=== PATIENT | female | born 1975 | race Caucasian/White ===

== ENCOUNTER 2016-11-28 09:43 | Inpatient (IN) | payer BC, OTHER ==
[~2016-11-28] VITALS: Ht 160 cm; Wt 102.5 kg
[~2016-11-28 09:43] MED LIST: MTR600X PO; PRENTAB26 PO
[2016-11-28] MEDS ORDERED: LACTATED RINGER'S 1000ML 1,000 ML IV SCH ×2 (10:28→17:16)
[2016-11-28] MEDS ORDERED: LACTATED RINGER'S 1000ML 1,000 ML IV PRN (10:28)
[2016-11-28] MEDS ORDERED: LACTATED RINGER'S 1000ML 500 ML IV PRN ×2 (10:29→14:27)
[2016-11-28] MEDS ORDERED: OXYTOCIN 30 UNITS/500ML NSS IV PRN ×2 (10:30→17:30)
[2016-11-28 10:55] LABS: HEMATOCRIT 34.6 % (37-47); MEAN CELL VOLUME 85.4 fL (80-100); MEAN CORPUSCULAR HEMOGLOBIN 29.4 pg (25-34); MEAN CORPUSCULAR HGB CONC 34.4 g/dl (32-36); MEAN PLATELET VOLUME 9.2 fL (7.4-10.4); PLATELET COUNT 231 K/uL (130-400); RED BLOOD COUNT 4.05 M/uL (4.2-5.4); WHITE BLOOD COUNT 9.66 K/uL (4.8-10.8)
--- NOTE | 2016-11-28 11:08 | HISTORY & PHYSICAL EXAMINATION ---
DATE OF ADMISSION: 11/28/2016 CHIEF COMPLAINT: Leakage of fluid. HISTORY OF PRESENT ILLNESS: The patient is a 41-year-old G3, P2-0-0-2 at 39 weeks and 3 days of gestation who has been feeling leakage of fluid since 11:00 p.m. last night. She had a gush of leakage x2, it was clear and since then she has been leaking a very small amount of discharge. She denies vaginal bleeding and she denies contractions. She reports good movements. She denies fever, chills, chest pain, shortness of breath, headache, change in her vision, nausea, or vomiting. Her has been complicated by: 1. Advanced maternal age. The patient had panorama testing. 2. Gestational diabetes. It has been diet controlled. 3. History of gastroesophageal reflux disease. 4. History of migraines. 5. Obesity class 1. PAST MEDICAL HISTORY: As above. She also has a history of ADHD. No medications for the last 8 years. History of asthma, allergic, no medications for the last 2 months. Gastroesophageal reflux, history of Khadijah fundoplication, migraines, history of depression and anxiety, no medications since 2013, allergic rhinitis. PAST SURGICAL HISTORY: Tovey teeth extraction, tonsillectomy, carpal tunnel surgery, Nino fundoplication for reflux disease, knee arthroscopy. MEDICATIONS: vitamins and DHA, Flonase nasal spray and Albuterol inhaler as needed, Boon 3 340 mg once a day. LABS: Her GC chlamydia cultures were negative. Blood type is A positive, antibody screen negative. H\T\H was 13/38, platelets 287. Rubella titer positive, RPR nonreactive, hepatitis B surface antigen negative. Urine culture was negative. One-hour Glucola on May 17 was elevated at 65 and 3-hour OGGT had high number. Maternal an AFP screening was negative. Repeat Glucola at 28 weeks was elevated and 3-hour OGGT was elevated. GBS culture was negative on 11/01/2016. PHYSICAL EXAMINATION: GENERAL: The patient is alert, oriented x3, not in acute distress. She is comfortable talking and smiling. VITAL SIGNS: Blood pressure is 115/71, temperature 97.9, pulse 85, respiration 22. CARDIOVASCULAR SYSTEM: S1, S2, RRR. LUNGS: Clear to auscultation bilaterally. ABDOMEN: Soft, gravid. Zachery 8 to 8-1/2 pounds. EXTREMITIES: Nontender, edema. PELVIC EXAMINATION: Speculum exam no pooling. Nitrazine positive and ferning positive. Bedside ultrasound vertex presentation. Her cervix is 1 cm dilated, thick, soft, -4 position. heart rate 150s, category 1. [place]ata mild irregular contractions. ASSESSMENT AND PLAN: The patient is a 41-year-old G3, P2-0-0-2 at 39 weeks and 3 days of gestation presenting with premature rupture of membranes at term, not in labor. Vital signs stable, afebrile. GBS negative. heart rate reassuring. Plan is admit her, start IV fluids, start IV Pitocin augmentation of labor and discussed the benefits of using Pitocin with decreased latency period and decreased risk for intra-amniotic infection. She understands and she agrees with the plan. GARCÍA
[2016-11-28 12:09] VITALS: Ht 160 cm; Wt 102.5 kg
[2016-11-28] MEDS ORDERED: OMEG10007 PO (12:10)
[2016-11-28] MEDS ORDERED: ACETAMINOPHEN 325 MG TAB PO SCH (12:30)
[2016-11-28] MEDS ORDERED: FENTANYL 2MCG/ML ROPIV 1.25MG/ML 100ML BAG EPI ONE (13:07)
[2016-11-28] MEDS ORDERED: BUPIVACAINE 0.25% 30 ML VIAL ONE (13:07)
[2016-11-28] MEDS ORDERED: EpHEDrine SULFATE INJ 50 MG/ML AMP ONE (13:07)
[2016-11-28] MEDS ORDERED: FENTANYL CITRATE INJ 50 MCG/1 ML 2 ML VIAL ONE (13:07)
[2016-11-28] MEDS ORDERED: NALOXONE HCL INJ 1 MG in SODIUM CHLORIDE 0.9% 1000ML 1,000 ML IV PRN (14:27)
[2016-11-28] MEDS ORDERED: EpHEDrine SULFATE INJ 50 MG/ML AMP IV PRN (14:30)
[2016-11-28] MEDS ORDERED: NALBUPHINE HCL INJ 10 MG/ML AMP IV PRN (14:30)
[2016-11-28] MEDS ORDERED: FENTANYL 2MCG/ML ROPIV 1.25MG/ML 100ML BAG EPI PRN (14:30)
[2016-11-28] MEDS ORDERED: ONDANSETRON INJ 2 MG/ML 2 ML VIAL IV PRN (14:30)
[2016-11-28] MEDS ORDERED: DiphenhydrAMINE HCL 50 MG/ML VIAL IV PRN (14:30)
[2016-11-28] MEDS ORDERED: NALOXONE HCL INJ 0.4 MG/1 ML VIAL/CARP IV PRN (14:30)
[2016-11-28] MEDS ORDERED: SUPERCREAM 0.870 % 15GM JAR EXT PRN (17:30)
[2016-11-28] MEDS ORDERED: LANOLIN OINT EXT PRN ×2 (17:30)
[2016-11-28] MEDS ORDERED: DIPHTHERIA/TETANUS/PERTUSSIS 0.5 ML SYR/VIAL IM. ONE (17:30)
[2016-11-28] MEDS ORDERED: MEASLES, MUMPS & RUBELLA VIRUS VIAL SQ. ONE (17:30)
[2016-11-28] MEDS ORDERED: HYDROCORTISONE ACETATE 25 MG SUPP PR PRN (17:30)
[2016-11-28] MEDS ORDERED: ACETAMINOPHEN 325 MG TAB PO PRN (17:30)
--- NOTE | 2016-11-28 17:46 | DELIVERY SUMMARY ---
DATE OF OPERATION: 11/28/2016 TIME OF DELIVERY OF BABY: 1703 p.m. TIME OF DELIVERY OF PLACENTA: 1710 p.m. DETAILS OF DELIVERY: The patient was found to be fully dilated and desired to push. She pushed for only 3 times and delivered the head in direct occiput posterior position, facing upwards and the shoulders at the same time. There was a cord around the right arm of the baby, which was reduced during delivery. Baby was handed off to the mother where mouth and nose were suctioned. Cord was clamped x2 and cut. It was a 3-vessel cord. Then the vagina and perineum were checked for lacerations. There was a small about 1 cm perineal laceration at the posterior fourchette. It was only a second degree, it was repaired with 2-0 Vicryl in a running fashion and good hemostasis was achieved. Then placenta was found to be in the vagina and delivered spontaneously intact and complete. The uterus was explored and found to be empty. Lower segment was cleared of all clots and debris. Fundus was firm. EBL was 200. Mother and baby tolerated the procedure well. Sponge, lap, needle, instrument count was correct x2. Baby was a viable female infant. Apgars 8/9, weight is pending. No complications happened and I was present during whole procedure. I attest to the content of the Intraoperative Record and any orders documented therein. Any exceptions are noted below. MTDD
--- NOTE | 2016-11-28 18:59 | Anesthesia Procedure Note ---
Anesthesia Epidural Removal Nt Date & Time Nov 28, 2016 at 18:59 Vital Signs Pain Intensity: 7.0 Notes Mental Status: alert / awake / arousable, participated in evaluation Nausea / Vomiting: adequately controlled Pain: adequately controlled Airway Patency, RR, SpO2: stable & adequate BP & HR: stable & adequate Hydration State: stable & adequate Neuraxial Anesthesia: was administered Anesthetic Complications: no major complications apparent, pt satisfied with anesthetic care Epidural: removed without complications, with tip intact
[2016-11-28] MEDS: BENZOCAINE 20% AER SPR 82.5 GM CAN EXT PRN (20:19)
[2016-11-28 20:30] VITALS: BP 123/73; PULSE 116; TEMP 36.6; O2SAT 98
[2016-11-28] MEDS: IBUPROFEN 600 MG TAB PO PRN (21:15)
[2016-11-28] MEDS ORDERED: MAGNESIUM HYDROXIDE SUSP 30 ML UDC PO PRN (22:30)
[2016-11-28] MEDS: ACETAMINOPHEN 325 MG TAB PO PRN (23:31)
[2016-11-29 00:25] VITALS: BP 107/65; PULSE 96; TEMP 36.4; O2SAT 97
[2016-11-29] MEDS: IBUPROFEN 600 MG TAB PO PRN ×4 (03:17→19:52)
[2016-11-29 03:25] VITALS: BP 110/79; PULSE 93; TEMP 36.3; O2SAT 96
[2016-11-29] MEDS: ACETAMINOPHEN 325 MG TAB PO PRN ×4 (06:13→21:59)
[2016-11-29 07:52] LABS: HEMATOCRIT 30.3 % (37-47)
[2016-11-29 07:55] VITALS: BP 111/77; PULSE 85; TEMP 36.4
[2016-11-29] MEDS: PRENATAL VITAMIN TAB PO SCH (08:02)
[2016-11-29] MEDS: FERROUS SULFATE 325 MG TAB PO SCH (08:02)
[2016-11-29] MEDS: DOCUSATE SODIUM 100 MG CAP PO PRN ×2 (08:02→19:55)
--- NOTE | 2016-11-29 09:36 | OB/GYN Progress Note ---
PRINTING SHOP SUPERVISOR Progress Note Date of Service Nov 29, 2016. Subjective conversation w/ patient, physical exam Ambulation: ambulating normally Voiding: no voiding problems Passing Gas: Yes Diet Tolerance: Regular Diet Lochia: Moderate Feeding Type: Breast Feeding Review of Systems Constitutional: No chills, No fatigue, No fever, No problem reported, No sweats , No weakness, No weight loss Respiratory: No cough, No dyspnea at rest, No dyspnea on exertion, No hemoptysis, No problem reported, No shortness of breath, No sputum, No wheezing Cardiac: No PND, No chest pain, No claudication, No edema, No orthopnea, No palpitations, No problem reported Breast: No breast lump, No breast pain, No change in shape, No nipple discharge , No problem reported, No see HPI Abdomen: No GI bleeding, No constipation, No diarrhea, No nausea, No pain, No problem reported, No vomiting Female : No abnormal vaginal bleeding, No dysuria, No hematuria, No incontinence, No problem reported, No see HPI, No urinary frequency, No vaginal discharge VD day #2 pt doing well No comaplaints Objective Vital Signs Date Time Temp Pulse Resp B/P Pulse Ox O2 Delivery O2 Flow Rate FiO2 11/29/16 07:55 36.4 85 20 111/77 11/29/16 03:25 36.3 93 20 110/79 96 Room Air 11/29/16 00:25 97 Room Air 11/29/16 00:25 36.4 96 16 107/65 97 Room Air 11/28/16 20:30 36.6 116 20 123/73 98 Room Air 11/28/16 20:30 98 Room Air Laboratory Results Last 24 Hours Test 11/28/16 10:48 11/28/16 11:25 11/28/16 13:37 11/28/16 15:33 White Blood Count 9.66 K/uL Red Blood Count 4.05 M/uL Hemoglobin 11.9 g/dL Hematocrit 34.6 % Mean Corpuscular Volume 85.4 fL Mean Corpuscular Hemoglobin 29.4 pg Mean Corpuscular Hemoglobin Concent 34.4 g/dl RDW Standard Deviation 43.2 fL RDW Coefficient of Variation 13.8 % Platelet Count 231 K/uL Mean Platelet Volume 9.2 fL Bedside Glucose 83 mg/dl 81 mg/dl 92 mg/dl Test 11/29/16 06:55 Hemoglobin 10.2 g/dL Hematocrit 30.3 %
[2016-11-29 11:30] VITALS: BP 132/90; PULSE 105; TEMP 36.4
[2016-11-29 16:10] VITALS: BP 124/80; PULSE 96; TEMP 36.5
[2016-11-29] MEDS ORDERED: BISACODYL 5 MG TABEC PO SCH (20:00)
[2016-11-30] MEDS: IBUPROFEN 600 MG TAB PO PRN ×4 (00:07→16:33)
[2016-11-30 00:25] VITALS: BP 122/74; PULSE 99; TEMP 36.4
[2016-11-30] MEDS: ACETAMINOPHEN 325 MG TAB PO PRN ×3 (02:05→12:53)
[2016-11-30 06:41] LABS: HEMATOCRIT 31.8 % (37-47); MEAN CELL VOLUME 86.2 fL (80-100); MEAN CORPUSCULAR HGB CONC 33.6 g/dl (32-36); MEAN PLATELET VOLUME 9.3 fL (7.4-10.4); PLATELET COUNT 198 K/uL (130-400); RED BLOOD COUNT 3.69 M/uL (4.2-5.4); WHITE BLOOD COUNT 10.74 K/uL (4.8-10.8)
[2016-11-30] MEDS ORDERED: BISACODYL 10 MG SUPP PR PRN (07:00)
[2016-11-30 08:30] VITALS: BP 122/78; PULSE 102; TEMP 36.8
[2016-11-30] MEDS: FERROUS SULFATE 325 MG TAB PO SCH (08:44)
[2016-11-30] MEDS: PRENATAL VITAMIN TAB PO SCH (08:44)
[2016-11-30] MEDS: BENZOCAINE 20% AER SPR 82.5 GM CAN EXT PRN (08:47)
--- NOTE | 2016-11-30 09:02 | OB/GYN Progress Note ---
BATCHING OPERATOR Progress Note Date of Service: Nov 30, 2016. Patient is seen and examined. She feels well, no complaints. Ambulating without dizziness Voiding without difficulty Tolerating regular diet with out N&V Bleeding is minimal No fever/ chills/ CP/ SOB/ N&V/ Leg pain Breast feeding without problems Date Time Temp Pulse Resp B/P Pulse Ox O2 Delivery O2 Flow Rate FiO2 11/30/16 00:25 Room Air 11/30/16 00:25 36.4 99 18 122/74 Room Air 11/29/16 16:10 36.5 96 24 124/80 Room Air 11/29/16 16:10 Room Air 11/29/16 11:30 36.4 105 22 132/90 Last 24 Hours Test 11/30/16 06:09 White Blood Count 10.74 K/uL Red Blood Count 3.69 M/uL Hemoglobin 10.7 g/dL Hematocrit 31.8 % Mean Corpuscular Volume 86.2 fL Mean Corpuscular Hemoglobin 29.0 pg Mean Corpuscular Hemoglobin Concent 33.6 g/dl RDW Standard Deviation 43.6 fL RDW Coefficient of Variation 13.8 % Platelet Count 198 K/uL Mean Platelet Volume 9.3 fL PE: General: Alert, orientedx3, NAD Abd: soft, NT, fundus firm, below Umbilicus Perineum intact, Lochia rubra minimal Ext; NT, no edema AP: 41 yo s/p , ppd# 2 VSS Afebrile doing well Instructions were given when to call All questions were answered D/C home , f/u in office
[2016-11-30] MEDS ORDERED: MTR600X PO (09:04)
--- NOTE | 2016-11-30 09:05 | Discharge Instructions ---
Discharge Instructions Admission Reason for Admission: R/O Rupture Of Membranes Discharge Discharge Diagnosis / Problem: SVS Discharge Goals Goal(s): Routine recovery after delivery Medications Continue Dispensed Medications: lansinoh Activity Recommendations Activity Limitations: as noted below . Instructions / Follow-Up Instructions / Follow-Up ACTIVITY RECOMMENDATIONS: * Gradual return to full activity over the next 2-3 weeks. * No lifting - nothing heavier than baby over the next 2-3 weeks. * Do not engage in vigorous exercise, sexual activity or sports until cleared by your physician. * Do not drive or operate any motorized equipment until cleared by your physician. * You may shower/bathe daily. BREAST CARE: If you are not breast feeding: * Wear a supportive bra 24 hours a day for one to two weeks. * Avoid stimulating your breasts and nipples as much as possible during the first few weeks after delivery. * When taking a shower, have the warm water hit your back, not breasts. * When your breasts feel full, apply ice packs. Usually three to four times a day helps ease the discomfort. * Take a mild pain medication (Tylenol/Motrin) when you are uncomfortable. If breast feeding: * Use breast milk to lubricate nipples. Lansinoh cream may be used for sore nipples. You do not need to remove cream prior to breast feeding. If using a different brand of cream, check the label for directions regarding removal of cream prior to nursing. * Wear a supportive bra. * If having problems with breasts or breast feeding, call a life consultant or your health care provider. EPISIOTOMY CARE: After delivery, if you have an episiotomy (stitches), the following steps will ease discomfort and aid healing. * For the first 24 hours after delivery, place ice packs next to your episiotomy to help reduce swelling. * After the first 24 hour-period, sitz baths, either portable or in the tub, are suggested. A shower with a shower arm sprayed over the episiotomy may be comforting. * Delfina care should be done after each voiding and bowel movement. Squirt warm water from a plastic bottle over the perineum (region of the body between the anus and urinary opening) and pat dry. * Use Dermoplast to ease discomfort. Shake container. [place] directly over the episiotomy. * Place a Tucks on a clean sanitary pad next to your episiotomy. OVER THE COUNTER MEDICATION: * For discomfort or pain, you may use Acetaminophen (Tylenol), Ibuprofen (Advil ), or Naproxen (Aleve) following the package directions. * For constipation you may use Colace following the package directions. SPECIAL CARE INSTRUCTIONS: When you are discharged from the hospital, it is important for you to follow the instructions listed below: * During the first week at home, you should be able to care for yourself and your baby. In addition, the usual light household activities are encouraged. * Limit your activities to the way you feel. Do not try to clean the house or move furniture. Be sensible. * If you actively engage in sports and have done so up until the time of your delivery, you may resume these activities as soon as you feel able. This may take up to one month or even longer. Use good judgment. * Continue to take your vitamins for at least six weeks after the of your baby. * Your diet need not be limited unless you were on a special diet before your delivery. Breast-feeding mothers need around 2500 calories per day and at least 64-80 ounces of fluid per day (8 to 10 glasses). * You should eat foods from the four major food groups. Crash diets or fad diets are to be avoided. Eating lean meats, fresh fruits and vegetables, low-fat dairy products, high fiber foods and a regular exercise program, will help you get back to your pre- weight without putting your health at risk. * Constipation is sometimes a problem after delivery. Take a mild laxative as needed. If breast feeding, Milk of Magnesia is acceptable to use. You may use a suppository or Fleets enema if no episiotomy. * A daily shower or tub bath is suggested. Be sure to thoroughly and gently dry the perineum. * A bloody vaginal discharge will usually continue until around four weeks post . A small amount of bleeding may continue for as long as six weeks. Vaginal discharge changes from the bright red bleeding after delivery to pink then brownish and finally yellowish-pink before becoming white and disappearing. * Bleeding may increase with activity. Your first period may come in 4-8 weeks. If you are breast feeding, your period may be delayed even longer. * [facility] (sex) can begin whenever both you and your partner feel comfortable and do not have any form of genital infection. It is recommended that you wait until after your return appointment and discuss with your physician. If you have questions, please talk to your health care practitioner. A condom should be used to prevent infection and . * Foreplay, gentle intercourse and lubrication is very important the first several times to prevent pain. A water-based lubricant such as K-Y jelly or Astroglide may be used. * Tampons may be used six weeks after delivery. * Douching should be avoided for 6 weeks after delivery. * If you have RH negative blood and your baby is RH positive, you will receive RHOGAM by injection prior to discharge. The nurse will give you a card to keep with you that has the date and place that you received RHOGAM after delivery. * During your care, you had a Rubella screen done to check for the presence of rubella antibodies in your blood. If your test was negative, you will receive a Rubella vaccine prior to discharge. This vaccine may cause a fever, soreness at the injection site and flu-like symptoms. If these symptoms persist, notify your health care practitioner. is not advised for three months after a Rubella vaccine. There is a higher chance of having a baby with defects if conceived within three months of getting the vaccine. * If you were discharged 24 hours from delivery or before 48 hours: Visiting nurses will come to your home 48 hours after discharge to assess you and your baby. The visiting nurse will meet with you while you are in the hospital to arrange a time and get directions to your home. * Verbalizes understanding of car seat law as reviewed with patient nursing. * Car Seat hand-out given and reviewed with patient by nursing. * Shaken baby information reviewed with patient by nursing. Call you doctor if: * Heavy bleeding (saturating several pads an hour) or passing clots the size of your fist. * A fever >101 degrees F (38.3 degrees C) on two occasions four hours apart and/or chills. * Unusual pain in the pelvic or vaginal areas. * "Baby Blues" lasting longer than two weeks. If you have any questions or concerns, call your health care practitioner at . FOLLOW-UP VISIT: * Please call the office at to schedule a 6 week examination. It is important you keep this appointment. * It is important for you to make arrangements for either yearly or twice yearly check-ups thereafter. Current Hospital Diet Patient's current hospital diet: Regular OB Diet Discharge Diet Recommended Diet: Regular Diet Pending Studies Studies pending at discharge: no Medical Emergencies . Who to Call and When: Medical Emergencies: If at any time you feel your situation is an emergency, please call 911 immediately. . Non-Emergent Contact Non-Emergency issues call your: Primary Care Provider, Surgeon Call Non-Emergent contact if: temperature is above 100.5, your pain is not controlled, wound has increased drainage, wound has increased pain . . "Provider Documentation" section prepared by Jay Lockwood. VTE Core Measure Inpt VTE Proph given/why not?: Treatment not indicated
[2016-11-30 15:00] VITALS: BP_DIAS 78; PULSE 102; TEMP 36.8
== END 2016-11-30 16:45 | disposition home or self-care (01) | DRG 775 ==
LOC: C.OPB 09:43 → C.LD 09:43 → C.OPB 10:29 → C.OBG 19:42 → EDSTATUS 12-02 09:45
PROVIDERS: ADMIT Obstetrics & Gynecology; ATTEND Obstetrics & Gynecology
PROC: 0KQM0ZZ Repair Perineum Muscle, Open Approach (ICD-10-PCS; principal; 2016-11-28)
PROC: 10E0XZZ Delivery of Products of Conception, External Approach (ICD-10-PCS; principal; 2016-11-28)
DX: O42.92 Full-term premature rupture of membranes, unspecified as to length of time between rupture and onset of labor (principal); Z68.41 Body mass index [BMI] 40.0-44.9, adult; O70.1 Second degree perineal laceration during delivery; O76 Abnormality in fetal heart rate and rhythm complicating labor and delivery; O69.2XX0 Labor and delivery complicated by other cord entanglement, with compression, not applicable or unspecified; O24.420 Gestational diabetes mellitus in childbirth, diet controlled; O99.52 Diseases of the respiratory system complicating childbirth; J45.909 Unspecified asthma, uncomplicated; O99.214 Obesity complicating childbirth; E66.9 Obesity, unspecified; Z37.0 Single live birth; Z3A.39 39 weeks gestation of pregnancy; Z79.899 Other long term (current) drug therapy